=== PATIENT | male | born 1970 | race African-American/Black ===

== ENCOUNTER 2017-08-12 13:02 | Inpatient (IN) | payer OTHER ==
[2017-08-12 15:07] VITALS: BMI 30.2
--- NOTE | 2017-08-12 16:50 | HP ---
CIWA Score - CIWA Score Nausea/Vomitin-Mild Nausea/No Vomiting Muscle Tremors: 4-Moderate,w/Arms Extend Anxiety: 4-Mod. Anxious/Guarded Agitation: 4-Moderately Restless Paroxysmal Sweats: 1-Minimal Palms Moist Orientation: 0-Oriented Tacttile Disturbances: 0-None Auditory Disturbances: 0-None Visual Disturbances: 0-None Headache: 1-Very Mild CIWA-Ar Total Score: 15 Admission ROS S - HPI Chief Complaint: WITHDRAWAL SX PATIENT REPORTS LAST ALCOHOL DETOX "FEW MONTHS" AGO, WAS IN [facility] ER OVER NIGHT RECEIVED "VITAMIN", DISCHARGED TODAY 08/12/17 TO [facility] FOR ALCOHOL DETOX, UNABLE TO PROVIDE ER DISCHARGE SUMMARY WITH POSITIVE BZO URINE TOX. Allergies/Adverse Reactions: Allergies Allergy/AdvReac Type Severity Reaction Status Date / Time No Known Allergies Allergy Verified 08/12/17 16:46 History of Present Illness: 46 YEARS OLD MALE WITH LONG HISTORY OF ALCOHOL NICOTINE DEPENDENCE DENIES MEDICAL ISSUE HAS DEPRESSION IS ADMITTED TO DETOX Exam Limitations: No Limitations - Ebola screening Have you traveled outside of the country in the last 21 days: No Have you had contact with anyone from an Ebola affected area: No Have you been sick,other than usual withdrawal symptoms: No Do you have a fever: No - Review of Systems Constitutional: Changes in sleep, Weight Stable EENT: reports: Blurred Vision (NEED EYE GLASSES) Respiratory: reports: No Symptoms reported Cardiac: reports: No Symptoms Reported GI: reports: Nausea, Poor Fluid Intake, Abdominal cramping : reports: No Symptoms Reported Musculoskeletal: reports: No Symptoms Reported Integumentary: reports: No Symptoms Reported Neuro: reports: Tremors Endocrine: reports: Intolerance to Cold Hematology: reports: No Symptoms Reported Psychiatric: reports: Judgement Intact, Orientated x3, Anxious, Depressed Other Systems: Reviewed and Negative Patient History - Patient Medical History Hx Anemia: No Hx Asthma: No Hx Chronic Obstructive Pulmonary Disease (COPD): No Hx Cancer: No Hx Cardiac Disorders: No Hx Congestive Heart Failure: No Hx Hypertension: No Hx Hypercholesterolemia: No Hx Pacemaker: No HX Cerebrovascular Accident: No Hx Seizures: No Hx Dementia: No Hx Diabetes: No Hx Gastrointestinal Disorders: No Hx Liver Disease: No Hx Genitourinary Disorders: No Hx Sexually Transmitted Disorders: No Hx Renal Disease (ESRD): No Hx Thyroid Disease: No Hx Human Immunodeficiency Virus (HIV): No Hx Hepatitis C: No Hx Depression: Yes Hx Suicide Attempt: No Hx Bipolar Disorder: No Hx Schizophrenia: No - Patient Surgical History Past Surgical History: No - PPD History Previous Implant?: Yes Documented Results: Negative w/o proof Implanted On Prior [facility] Admission?: No PPD to be Administered?: Yes - Smoking Cessation Smoking history: Current every day smoker Have you smoked in the past 12 months: Yes Aproximately how many cigarettes per day: 6 Cigars Per Day: 0 Hx Chewing Tobacco Use: No Initiated information on smoking cessation: Yes 'Breaking Loose' booklet given: 08/12/17 - Substance & Tx. History Hx Alcohol Use: Yes Hx Substance Use: Yes Substance Use Type: Alcohol, Marijuana Hx Substance Use Treatment: Yes (05/2017 [facility]) - Substances Abused Alcohol Route: Oral Frequency: Daily Amount used: FIFTH VOLKA Age of first use: 12 Date of Last Use: 08/12/17 Family Disease History - Family Disease History Family Disease History: Diabetes: Mother Admission Physical Exam [facility] - Vital Signs Vital Signs: Vital Signs - 24 hr 08/12/17 15:05 Temperature 98.1 F Pulse Rate 120 H Respiratory 20 Rate Blood Pressure 160/100 - Physical General Appearance: Yes: Appropriately Dressed, Mild Distress, Obese, Tremorous , Irritable, Sweating, Anxious HEENTM: Yes: Hearing grossly Normal, Normal ENT Inspection, Normocephalic, Normal Voice Respiratory: Yes: Chest Non-Tender, Lungs Clear, Normal Breath Sounds, No Respiratory Distress, No Accessory Muscle Use Neck: Yes: Supple, Trachea in good position Breast: Yes: Breasts Symetrical Cardiology: Yes: Regular Rhythm, S1, S2, Tachycardia Abdominal: Yes: Non Tender, Soft, Increased Bowel Sounds Genitourinary: Yes: Within Normal Limits Back: Yes: Normal Inspection Musculoskeletal: Yes: full range of Motion, Gait Steady Extremities: Yes: Normal Inspection (LEFT ARM SUPERFICIAL SKIN ABRASION), Normal Range of Motion, Non-Tender, Tremors Neurological: Yes: Fully Oriented, Alert, Motor Strength 5/5, Normal Response Integumentary: Yes: Warm Lymphatic: Yes: Within Normal Limits - Diagnostic (1) Alcohol dependence with uncomplicated withdrawal Current Visit: Yes Status: Acute (2) Nicotine dependence Current Visit: Yes Status: Acute Qualifiers: Nicotine product type: cigarettes Substance use status: in withdrawal Qualified Code(s): F17.213 - Nicotine dependence, cigarettes, with withdrawal (3) Depression (emotion) Current Visit: Yes Status: Suspected Qualifiers: Depression Type: dysthymia Qualified Code(s): F34.1 - Dysthymic disorder Cleared for Admission [facility] - Detox or Rehab [facility] Level of Care: Medically Managed Detox Regimen/Protocol: Librium [facility] Breath Alcohol Content Breath Alcohol Content: 0.011 Urine Drug Screen - Results Drug Screen Negative: No Urine Drug Screen Results: THC-Marijuana, BZO-Benzodiazepines
[2017-08-12] MEDS ORDERED: MAGNESIUM HYDROX 2400MG/30ML ORAL SUSPENSION 30 ML CUP PO PRN (16:54)
[2017-08-12] MEDS ORDERED: chlordiazePOXIDE HCL 25 MG CAPSULE PO PRN (16:54)
[2017-08-12] MEDS ORDERED: hydrOXYzine PAMOATE 50 MG CAPSULE (FP) PO PRN (16:54)
[2017-08-12] MEDS ORDERED: LOPERAMIDE HCL 2 MG CAPSULE PO PRN (16:54)
[2017-08-12] MEDS ORDERED: IBUPROFEN 400 MG TABLET (FP) PO PRN (16:54)
[2017-08-12] MEDS ORDERED: MAGNESIUM CITRATE 300 ML BOTTLE PO PRN (16:54)
[2017-08-12] MEDS ORDERED: NICOTINE POLACRILEX 2 MG GUM BUC PRN (16:54)
[2017-08-12] MEDS ORDERED: ACETAMINOPHEN 325 MG TABLET (FP) PO PRN (16:54)
[2017-08-12] MEDS ORDERED: MAG HYDROX/AL HYDROX/SIMETH 30 ML UNIT-DOSE CUP PO PRN (16:54)
[2017-08-12] MEDS ORDERED: P-EPHED 60MG/TRIPROLIDI 2.5MG TABLET PO PRN (16:54)
[2017-08-12] MEDS ORDERED: guaiFENesin/D-METHORPHAN HB 10 ML UNIT-DOSE CUPS PO PRN (16:54)
[2017-08-12] MEDS ORDERED: MENTHOL/PHENOL 1 EACH UD MM PRN (16:54)
[2017-08-12] MEDS ORDERED: chlordiazePOXIDE HCL 25 MG CAPSULE PO ONE (16:54)
[2017-08-12] MEDS ORDERED: chlordiazePOXIDE HCL 25 MG CAPSULE ONE (19:44)
[2017-08-12] MEDS ORDERED: diphenhydrAMINE HCL 50 MG CAPSULE PO PRN (22:00)
[2017-08-12] MEDS: chlordiazePOXIDE HCL 25 MG CAPSULE PO SCH (22:08)
[2017-08-12] MEDS: cloNIDine HCL 0.1 MG TABLET PO PRN (22:08)
[2017-08-12] MEDS: THIAMINE HCL 100 MG TABLET (FP) PO SCH (22:08)
[2017-08-12 23:38] LABS: URINE APPEARANCE SLCLOUDY; URINE BILIRUBIN NEGATIVE (NEGATIVE); URINE BLOOD 1+ (NEGATIVE); URINE COLOR YELLOW; URINE GLUCOSE (UA) NEGATIVE (NEGATIVE); URINE KETONE 2+ (NEGATIVE); URINE LEUK ESTERASE NEGATIVE (NEGATIVE); URINE NITRITE NEGATIVE (NEGATIVE); URINE UROBILINOGEN NEGATIVE mg/dL (0.2-1.0)
[2017-08-12 23:46] LABS: URINE PROTEIN 2+ (NEGATIVE)
[2017-08-12 23:56] LABS: URINE MUCUS MODERATE; URINE RBC 6 /hpf (0-3); URINE WBC <1 /hpf (3-5)
[2017-08-13] MEDS: chlordiazePOXIDE HCL 25 MG CAPSULE PO SCH ×4 (05:23→22:31)
[2017-08-13] MEDS: PRENATAL VITAMINS W/ FOLIC ACID TABLET (FP) PO SCH (10:18)
[2017-08-13] MEDS: NICOTINE 14 MG/24 HOURS TOPICAL PATCH TD SCH (10:19)
[2017-08-13 10:28] LABS: ALBUMIN 3.9 g/dl (3.4-5.0); ANION GAP 6 (8-16); CALCIUM 8.9 mg/dL (8.5-10.1); CO2 30 mmol/L (21-32); GLUCOSE,RANDOM 90 mg/dL (74-106)
[2017-08-13 10:32] LABS: ALK PHOS 51 U/L (45-117); BILIRUBIN,TOTAL 1.6 mg/dL (0.2-1.0); SGOT/AST 50 U/L (15-37); SGPT/ALT 56 U/L (12-78); TOT PROT 7.1 g/dl (6.4-8.2)
[2017-08-13] MEDS ORDERED: BACITRACIN 15 GM TUBE TOPICAL OINTMENT TP SCH (11:30)
--- NOTE | 2017-08-13 13:07 | EKG ---
Test Reason : Blood Pressure : / mmHG Vent. Rate : 097 BPM Atrial Rate : 097 BPM P-R Int : 124 ms QRS Dur : 092 ms QT Int : 364 ms P-R-T Axes : 061 013 042 degrees QTc Int : 462 ms NORMAL SINUS RHYTHM WITH SINUS ARRHYTHMIA POSSIBLE LEFT ATRIAL ENLARGEMENT NO PREVIOUS ECGS AVAILABLE Confirmed by ANGELA BROWN MD ([id number]) on 08/13/2017 1:06:34 PM Referred By: Confirmed By:ANGELA BROWN MD
--- NOTE | 2017-08-13 14:25 | CONSULT ---
[facility] Psychiatric Consult - Data Date of interview: 08/13/17 Admission source: [facility] Identifying data: First admission to [facility] for this 46 y/o AA male seeking detox treatment on for alcohol and marihuana dependence.Patient is ,father of one,domiciled,currently unemployed and collecting unemployment benefits. Substance Abuse History: Confirmed by patient in this session. Smoking Cessation. Smoking history: Current every day smoker. Have you smoked in the past 12 months: Yes. Aproximately how many cigarettes per day: 6. Cigars Per Day: 0. Hx Chewing Tobacco Use: No. Initiated information on smoking cessation : Yes. 'Breaking Loose' booklet given: 08/12/17. - Substance & Tx. History. Hx Alcohol Use: Yes. Hx Substance Use: Yes. Substance Use Type: Alcohol, Marijuana. Hx Substance Use Treatment: Yes (05/2017 [facility]). - Substances Abused. Alcohol. Route: Oral. Frequency: Daily. Amount used: FIFTH VOLKA. Age of first use: 12. Date of Last Use: 08/12/17 Medical History: No reported history of medical problems. Psychiatric History: Patient denies. Physical/Sexual Abuse/Trauma History: Denies history of abuse. Additional Comment: Urine Drug Screen Results: THC-Marijuana, BZO- Benzodiazepines.Noted. Mental Status Exam - Mental Status Exam Alert and Oriented to: Time, Place, Person Cognitive Function: Good Patient Appearance: Well Groomed Mood: Hopeful, Euthymic Affect: Appropriate, Normal Range Patient Behavior: Fatigued, Cooperative Speech Pattern: Clear Voice Loudness: Normal Thought Process: Intact, Goal Oriented Thought Disorder: Not Present Hallucinations: Denies Suicidal Ideation: Denies Homicidal Ideation: Denies Insight/Judgement: Poor Sleep: Poorly, Difficulty falling asleep Appetite: Good Muscle strength/Tone: Normal Gait/Station: Normal Psychiatric Findings - Problem List ([place] 1, 2,3) (1) Alcohol dependence with uncomplicated withdrawal Current Visit: Yes Status: Acute (2) Marihuana dependence Current Visit: Yes Status: Acute (3) Nicotine dependence Current Visit: Yes Status: Acute Qualifiers: Nicotine product type: cigarettes Substance use status: in withdrawal Qualified Code(s): F17.213 - Nicotine dependence, cigarettes, with withdrawal (4) Insomnia Current Visit: Yes Status: Acute - Initial Treatment Plan Initial Treatment Plan: Psychoeducation.Detoxification.Ambien 10 mg po hs prn.Patient is informed of risk of parasomnias.Educated about benefits of sleep hygiene.He agrees with this plan of care.Observation.
[2017-08-13] MEDS: METHOCARBAMOL 500 MG TABLET PO PRN ×2 (14:31→22:33)
--- NOTE | 2017-08-13 16:02 | PN ---
S CIWA - CIWA Score Nausea/Vomitin Muscle Tremors: 2 Anxiety: 3 Agitation: 1-Slight > Activity Paroxysmal Sweats: 3 Orientation: 0-Oriented Tacttile Disturbances: 0-None Auditory Disturbances: 2-Mild Harshness/Frighten Visual Disturbances: 2-Mild Sensitivity Headache: 0-None Present CIWA-Ar Total Score: 16 BHS Progress Note (SOAP) Subjective: Interrupted sleep, Body Aches, Sweating, Tremors, Diarrhea, Stomach Cramping. Objective: PT. A & O X 3, OBSERVED AMBULATING ON UNIT. NO ACUTE DISTRESS. 08/13/17 16:00 Vital Signs Temperature 98.6 F 08/13/17 15:17 Pulse Rate 106 H 08/13/17 15:17 Respiratory Rate 20 08/13/17 15:17 Blood Pressure 125/87 08/13/17 15:17 O2 Sat by Pulse Oximetry (%) Laboratory Tests 08/12/17 08/13/17 08/13/17 23:20 08:00 08:00 Sodium 139 Potassium 3.7 Chloride 103 Carbon Dioxide 30 Anion Gap 6 L BUN 12 Creatinine 1.0 Creat Clearance w eGFR > 60 Random Glucose 90 Calcium 8.9 Total Bilirubin 1.6 H AST 50 H ALT 56 Alkaline Phosphatase 51 Total Protein 7.1 Albumin 3.9 Urine Color Yellow Urine Appearance Slcloudy Urine pH 5.0 Ur Specific [place] >= 1.030 H Urine Protein 2+ H Urine Glucose (UA) Negative Urine Ketones 2+ H Urine Blood 1+ H Urine Nitrite Negative Urine Bilirubin Negative Urine Urobilinogen Negative Urine RBC 6 Urine WBC <1 Urine Mucus Moderate RPR Titer Nonreactive LABS NOTED. CBC RESULTS PENDING. 08/13/17 16:02 Assessment: 08/13/17 16:00 WITHDRAWAL SYMPTOMS. Plan: CONTINUE DETOX. REPEAT UA FOR ADMISSION ABNORMALITIES. PRN IMMODIUM FOR DIARRHEA. INCREASE DAILY PO FLUID INTAKE.
[2017-08-13 20:39] LABS: MCH 30.2 pg (25.7-33.7); MCHC 33.7 g/dl (32.0-35.9); MEAN CELL VOLUME 89.4 fl (80-96); MEAN PLT VOLUME 9.3 fl (7.5-11.1); PLATELET COUNT 145 K/MM3 (134-434); RDW 14.1 % (11.9-15.9); WHITE BLOOD COUNT 3.9 K/mm3 (4.0-10.0)
[2017-08-13] MEDS: THIAMINE HCL 100 MG TABLET (FP) PO SCH (22:31)
[2017-08-13] MEDS: ZOLPIDEM TARTRATE 5 MG TABLET PO PRN (22:32)
[2017-08-13] MEDS: BACITRACIN 0.9 GM PACKET TP SCH (22:32)
[2017-08-14] MEDS: chlordiazePOXIDE HCL 25 MG CAPSULE PO SCH ×3 (05:28→17:35)
[2017-08-14] MEDS: BACITRACIN 0.9 GM PACKET TP SCH ×2 (10:17→22:14)
[2017-08-14] MEDS: METHOCARBAMOL 500 MG TABLET PO PRN ×3 (10:17→22:15)
[2017-08-14] MEDS: PRENATAL VITAMINS W/ FOLIC ACID TABLET (FP) PO SCH (10:17)
[2017-08-14] MEDS: NICOTINE 14 MG/24 HOURS TOPICAL PATCH TD SCH (10:18)
--- NOTE | 2017-08-14 15:49 | PN ---
[facility] CIWA - CIWA Score Nausea/Vomitin Muscle Tremors: 4-Moderate,w/Arms Extend Anxiety: 4-Mod. Anxious/Guarded Agitation: 2 Paroxysmal Sweats: 3 Orientation: 0-Oriented Tacttile Disturbances: 1-Very Mild Itch/Numbness Auditory Disturbances: 0-None Visual Disturbances: 0-None Headache: 0-None Present CIWA-Ar Total Score: 17 BHS Progress Note (SOAP) Subjective: Diarrhea, tremor, chills, sweating, interrupted sleep Objective: 08/14/17 15:46 Last Vital Signs Temp Pulse Resp BP Pulse Ox 97.9 F 97 H 18 132/77 08/14/17 14:48 08/14/17 14:48 08/14/17 14:48 08/14/17 14:48 Laboratory Tests 08/12/17 08/13/17 08/13/17 23:20 08:00 08:00 WBC 3.9 L RBC 4.78 Hgb 14.4 Hct 42.8 MCV 89.4 MCH 30.2 MCHC 33.7 RDW 14.1 Plt Count 145 MPV 9.3 Sodium 139 Potassium 3.7 Chloride 103 Carbon Dioxide 30 Anion Gap 6 L BUN 12 Creatinine 1.0 Creat Clearance w eGFR > 60 Random Glucose 90 Calcium 8.9 Total Bilirubin 1.6 H AST 50 H ALT 56 Alkaline Phosphatase 51 Total Protein 7.1 Albumin 3.9 Urine Color Yellow Urine Appearance Slcloudy Urine pH 5.0 Ur Specific [place] >= 1.030 H Urine Protein 2+ H Urine Glucose (UA) Negative Urine Ketones 2+ H Urine Blood 1+ H Urine Nitrite Negative Urine Bilirubin Negative Urine Urobilinogen Negative Urine RBC 6 Urine WBC <1 Urine Mucus Moderate RPR Titer 08/13/17 08:00 WBC RBC Hgb Hct MCV MCH MCHC RDW Plt Count MPV Sodium Potassium Chloride Carbon Dioxide Anion Gap BUN Creatinine Creat Clearance w eGFR Random Glucose Calcium Total Bilirubin AST ALT Alkaline Phosphatase Total Protein Albumin Urine Color Urine Appearance Urine pH Ur Specific [place] Urine Protein Urine Glucose (UA) Urine Ketones Urine Blood Urine Nitrite Urine Bilirubin Urine Urobilinogen Urine RBC Urine WBC Urine Mucus RPR Titer Nonreactive Labs noted: abnormal UA Assessment: 08/14/17 15:46 Withdrawal symptoms Noted with abnormal UA Plan: Continue detox Abnormal UA: encouraged to drink lots of water, repeat UA
[2017-08-14] MEDS: THIAMINE HCL 100 MG TABLET (FP) PO SCH (22:14)
[2017-08-14] MEDS: ZOLPIDEM TARTRATE 5 MG TABLET PO PRN (22:15)
[2017-08-14] MEDS: chlordiazePOXIDE 5 MG CAPSULE PO SCH (22:15)
[2017-08-15] MEDS: cloNIDine HCL 0.1 MG TABLET PO PRN (05:29)
[2017-08-15] MEDS: chlordiazePOXIDE 5 MG CAPSULE PO SCH ×3 (05:29→17:34)
[2017-08-15] MEDS: NICOTINE 14 MG/24 HOURS TOPICAL PATCH TD SCH (10:06)
[2017-08-15] MEDS: PRENATAL VITAMINS W/ FOLIC ACID TABLET (FP) PO SCH (10:06)
[2017-08-15] MEDS: BACITRACIN 0.9 GM PACKET TP SCH ×2 (10:06→22:10)
[2017-08-15] MEDS: METHOCARBAMOL 500 MG TABLET PO PRN ×2 (10:07→22:13)
--- NOTE | 2017-08-15 11:13 | PN ---
BHS Progress Note (SOAP) Subjective: nausea, sweats, interrupted sleep, anxiety, tremors Objective: 08/15/17 11:12 Vital Signs - 8 hr 08/15/17 08/15/17 08/15/17 03:30 06:21 09:01 Temperature 97.7 F 96.6 F L Pulse Rate 80 91 H Respiratory 18 18 20 Rate Blood Pressure 147/98 142/91 Laboratory Tests 08/12/17 08/13/17 08/13/17 23:20 08:00 08:00 WBC 3.9 L RBC 4.78 Hgb 14.4 Hct 42.8 MCV 89.4 MCH 30.2 MCHC 33.7 RDW 14.1 Plt Count 145 MPV 9.3 Sodium 139 Potassium 3.7 Chloride 103 Carbon Dioxide 30 Anion Gap 6 L BUN 12 Creatinine 1.0 Creat Clearance w eGFR > 60 Random Glucose 90 Calcium 8.9 Total Bilirubin 1.6 H AST 50 H ALT 56 Alkaline Phosphatase 51 Total Protein 7.1 Albumin 3.9 Urine Color Yellow Urine Appearance Slcloudy Urine pH 5.0 Ur Specific [place] >= 1.030 H Urine Protein 2+ H Urine Glucose (UA) Negative Urine Ketones 2+ H Urine Blood 1+ H Urine Nitrite Negative Urine Bilirubin Negative Urine Urobilinogen Negative Urine RBC 6 Urine WBC <1 Urine Mucus Moderate RPR Titer 08/13/17 08:00 WBC RBC Hgb Hct MCV MCH MCHC RDW Plt Count MPV Sodium Potassium Chloride Carbon Dioxide Anion Gap BUN Creatinine Creat Clearance w eGFR Random Glucose Calcium Total Bilirubin AST ALT Alkaline Phosphatase Total Protein Albumin Urine Color Urine Appearance Urine pH Ur Specific [place] Urine Protein Urine Glucose (UA) Urine Ketones Urine Blood Urine Nitrite Urine Bilirubin Urine Urobilinogen Urine RBC Urine WBC Urine Mucus RPR Titer Nonreactive Assessment: 08/15/17 11:12 withdrawal sx, abnormal lfts Plan: cont detox, fluids, encourage ambulation abstain from alcohol and illicit drug use, patient aware, symptomtic relief of withdrawal, prn medication sordered
[2017-08-15] MEDS: chlordiazePOXIDE HCL 10 MG CAPSULE PO SCH (22:10)
[2017-08-15] MEDS: THIAMINE HCL 100 MG TABLET (FP) PO SCH (22:10)
[2017-08-15] MEDS: ZOLPIDEM TARTRATE 5 MG TABLET PO PRN (22:11)
[2017-08-16] MEDS: chlordiazePOXIDE HCL 10 MG CAPSULE PO SCH (05:39)
[2017-08-16] MEDS: cloNIDine HCL 0.1 MG TABLET PO PRN (05:40)
[2017-08-16] MEDS: METHOCARBAMOL 500 MG TABLET PO PRN (05:42)
[2017-08-16 07:41] VITALS: PULSE 80
[2017-08-16 09:22] VITALS: BP 141/89; TEMP 96.7
[2017-08-16] MEDS: PRENATAL VITAMINS W/ FOLIC ACID TABLET (FP) PO SCH (09:23)
[2017-08-16] MEDS: BACITRACIN 0.9 GM PACKET TP SCH (09:23)
[2017-08-16] MEDS: NICOTINE 14 MG/24 HOURS TOPICAL PATCH TD SCH (09:23)
--- NOTE | 2017-08-16 14:53 | DS ---
[facility] Detox Discharge Summary Admission Date: 08/12/17 Discharge Date: 08/16/17 - History Present History: Alcohol Dependence, Cannabis Dependence Additional Comments: PATIENT GOING HOME. PATIENT ADVISED TO CONSIDER LOCAL 12-STEP / AA / NA OUTPATIENT PROGRAMS FOR AFTERCARE. PATIENT WAS DISCHARGED FROM DETOX UNIT IN STABLE MEDICAL CONDITION. Pertinent Past History: Depression, Insomnia, Nicotine dependence. - Physical Exam Results Vital Signs: Vital Signs Temperature 96.7 F L 08/16/17 09:22 Pulse Rate 80 08/16/17 09:22 Respiratory Rate 18 08/16/17 09:22 Blood Pressure 141/89 08/16/17 09:22 O2 Sat by Pulse Oximetry (%) Pertinent Admission Physical Exam Findings: WITHDRAWAL SYMPTOMS. Laboratory Tests 08/12/17 08/13/17 08/13/17 23:20 08:00 08:00 WBC 3.9 L RBC 4.78 Hgb 14.4 Hct 42.8 MCV 89.4 MCH 30.2 MCHC 33.7 RDW 14.1 Plt Count 145 MPV 9.3 Sodium 139 Potassium 3.7 Chloride 103 Carbon Dioxide 30 Anion Gap 6 L BUN 12 Creatinine 1.0 Creat Clearance w eGFR > 60 Random Glucose 90 Calcium 8.9 Total Bilirubin 1.6 H AST 50 H ALT 56 Alkaline Phosphatase 51 Total Protein 7.1 Albumin 3.9 Urine Color Yellow Urine Appearance Slcloudy Urine pH 5.0 Ur Specific [place] >= 1.030 H Urine Protein 2+ H Urine Glucose (UA) Negative Urine Ketones 2+ H Urine Blood 1+ H Urine Nitrite Negative Urine Bilirubin Negative Urine Urobilinogen Negative Urine RBC 6 Urine WBC <1 Urine Mucus Moderate RPR Titer 08/13/17 08:00 WBC RBC Hgb Hct MCV MCH MCHC RDW Plt Count MPV Sodium Potassium Chloride Carbon Dioxide Anion Gap BUN Creatinine Creat Clearance w eGFR Random Glucose Calcium Total Bilirubin AST ALT Alkaline Phosphatase Total Protein Albumin Urine Color Urine Appearance Urine pH Ur Specific [place] Urine Protein Urine Glucose (UA) Urine Ketones Urine Blood Urine Nitrite Urine Bilirubin Urine Urobilinogen Urine RBC Urine WBC Urine Mucus RPR Titer Nonreactive LABS NOTED. - Treatment Hospital Course: Detox Protocol Followed, Detoxed Safely, Responded well, Discharged Condition Good Patient has Accepted a Rehab Referral to: NO. PT ADVISED TO CONSIDER OUTPATIENT 12-STEP/NA/AA PROGRAMS FOR AFTERCARE. - Medication Discharge Medications: Ambulatory Orders NK [No Known Home Medication] 08/12/17 - Diagnosis (1) Alcohol dependence with uncomplicated withdrawal Status: Acute (2) Insomnia Status: Acute Qualifiers: Insomnia type: unspecified Qualified Code(s): G47.00 - Insomnia, unspecified; G47.00 - Insomnia, unspecified (3) Marihuana dependence Status: Acute (4) Nicotine dependence Status: Chronic Qualifiers: Nicotine product type: cigarettes Substance use status: in withdrawal Qualified Code(s): F17.213 - Nicotine dependence, cigarettes, with withdrawal; F17.213 - Nicotine dependence, cigarettes, with withdrawal (5) Depression (emotion) Status: Suspected Qualifiers: Depression Type: dysthymia Qualified Code(s): F34.1 - Dysthymic disorder; F34.1 - Dysthymic disorder; F34.1 - Dysthymic disorder - AMA Did Patient Leave Against Medical Advice: No
== END 2017-08-16 09:24 | disposition home or self-care (01) | DRG 775 ==
LOC: YASAS 13:02 → Y3N 19:20
PROVIDERS: ADMIT Internal Medicine; ATTEND Internal Medicine
PROC: HZ2ZZZZ Detoxification Services for Substance Abuse Treatment (ICD-10-PCS; principal; 2017-08-12)
DX: F10.230 Alcohol dependence with withdrawal, uncomplicated (principal); F12.20 Cannabis dependence, uncomplicated; F17.213 Nicotine dependence, cigarettes, with withdrawal; F34.1 Dysthymic disorder; G47.00 Insomnia, unspecified
CPT/HCPCS: 36415; 80053; 81003; 81015; 85027; 86593; 93005; 93010